=== PATIENT | female | born 1995 | race Two or more races ===

== ENCOUNTER 2020-08-20 21:10 | Emergency (ER) | payer SELFPAY ==
[~2020-08-20] VITALS: Ht 167.6 cm; Wt 57.6 kg
[2020-08-21 01:30] VITALS: BP 108/71
== END 2020-08-21 07:02 | disposition home or self-care (01) ==
LOC: ER 21:10
DX: S90.562A Insect bite (nonvenomous), left ankle, initial encounter (principal); S70.362A Insect bite (nonvenomous), left thigh, initial encounter; S90.561A Insect bite (nonvenomous), right ankle, initial encounter; L08.9 Local infection of the skin and subcutaneous tissue, unspecified; W57.XXXA Bitten or stung by nonvenomous insect and other nonvenomous arthropods, initial encounter; Y93.89 Activity, other specified; Y92.89 Other specified places as the place of occurrence of the external cause; Y99.8 Other external cause status